=== PATIENT | female | born 1975 | race Caucasian/White ===

== ENCOUNTER 2022-07-23 13:00 | Emergency (ER) | payer MEDICAID ==
[~2022-07-23] VITALS: Ht 162.6 cm; Wt 78.0 kg
[2022-07-23 13:39] VITALS: BP 177/92
[2022-07-23] MEDS ORDERED: KETOROLAC 60MG/2ML VIAL IM ONE (13:45)
[2022-07-23] MEDS ORDERED: IBUP-2029 MT (15:57)
== END 2022-07-23 17:22 | disposition home or self-care (01) ==
LOC: ER 13:00
DX: R51.9 Headache, unspecified (principal)
CPT/HCPCS: 70450; 96372; 99284; J1885

== ENCOUNTER 2022-08-04 14:25 | Emergency (ER) | payer MEDICAID ==
[~2022-08-04] VITALS: Ht 160 cm; Wt 75.0 kg
[~2022-08-04 14:25] MED LIST: IBUP-2029 MT
[2022-08-04] MEDS ORDERED: HYDRALAZINE 20MG/ML VIAL IV ONE (15:15)
[2022-08-04 15:59] LABS: BASOPHILS % 0.5 % (0.0-2.0); EOSINOPHILS % 2.5 % (0.0-5.0); HEMATOCRIT. 29.5 % (36.0-48.0); HEMOGLOBIN. 8.9 g/dL (12.0-16.0); LYMPHOCYTES % 27.4 % (20.0-50.0); MEAN CORPUSCULAR HEMOGLOBIN 19.9 pg (28.0-32.0); MEAN CORPUSCULAR VOLUME 66.1 fL (81.0-99.0); MEAN PLATELET VOLUME 9.8 fl (7.4-10.4); MONOCYTES % 7.3 % (2.0-8.0); NEUTROPHILS % 62.3 % (40.0-76.0); PLATELET 193 x1000/uL (130-400); RED BLOOD CELL COUNT 4.46 mill/uL (4.2-5.4); RED CELL DISTRIBUTION WIDTH 20.9 % (11.6-14.6)
[2022-08-04 16:05] LABS: CHLORIDE 103 mEq/L (98-107)
[2022-08-04 16:31] LABS: HCG SCREEN NEGATIVE
[2022-08-04 16:41] LABS: PLATELET ESTIMATE NORMAL
[2022-08-04] MEDS ORDERED: AMLO5TAB88 MT (19:29)
[2022-08-04 20:00] VITALS: BP 139/84
== END 2022-08-04 20:03 | disposition home or self-care (01) ==
LOC: ER 14:25
DX: I10 Essential (primary) hypertension (principal); D64.9 Anemia, unspecified
CPT/HCPCS: 36415; 80053; 83880; 84484; 84703; 85025; 93005; 96374; 99284; J0360

== ENCOUNTER 2024-02-05 11:08 | Emergency (ER) | payer SELFPAY ==
[~2024-02-05] VITALS: Ht 165.1 cm; Wt 100.0 kg
[~2024-02-05 11:08] MED LIST changes: +AMLO5TAB88 MT
[2024-02-05 11:21] VITALS: O2SAT 99
[2024-02-05 11:50] LABS: BASOPHILS % 0.3 % (0.0-2.0); EOSINOPHILS % 1.9 % (0.0-5.0); HEMATOCRIT. 32.9 % (36.0-48.0); HEMOGLOBIN. 10.1 g/dL (12.0-16.0); LYMPHOCYTES % 33.2 % (20.0-50.0); MEAN CORPUSCULAR HEMOGLOBIN 21.4 pg (28.0-32.0); MEAN CORPUSCULAR HGB CONC 30.8 g/dL (31.0-37.0); MEAN CORPUSCULAR VOLUME 69.4 fL (81.0-99.0); MEAN PLATELET VOLUME 8.8 fl (7.4-10.4); MONOCYTES % 7.5 % (2.0-8.0); NEUTROPHILS % 57.1 % (40.0-76.0); PLATELET 199 x1000/uL (130-400); RED BLOOD CELL COUNT 4.74 mill/uL (4.2-5.4); WHITE BLOOD COUNT 3.7 x1000/uL (4.5-11.0)
[2024-02-05] MEDS: METOCLOPRAMIDE HCL 10MG/2ML VIAL IV ONE (11:50)
[2024-02-05 11:51] LABS: ADD RBC MORPHOLOGY YES; DIFFERENTIAL COMMENT 1
[2024-02-05] MEDS: KETOROLAC 15MG/ML VIAL IV ONE (11:51)
[2024-02-05] MEDS: SODIUM CHLORIDE 0.9% 1,000 ML IV ONE (11:52)
[2024-02-05 11:55] VITALS: BP 189/97; PULSE 73; RESP 12; TEMP 98
[2024-02-05 12:04] LABS: CHLORIDE 108 mEq/L (98-107); POTASSIUM 3.8 mEq/L (3.5-5.1); SODIUM 140 mEq/L (136-145)
[2024-02-05 12:05] LABS: CARBON DIOXIDE 28 mEq/L (21-32)
[2024-02-05 12:06] LABS: CALCIUM 9.2 mg/dL (8.7-10.4)
[2024-02-05 12:10] LABS: CREATININE 0.7 mg/dL (0.6-1.0); GLUCOSE 93 mg/dL (70-105)
[2024-02-05 12:11] LABS: UREA NITROGEN BLOOD 8 mg/dL (9-23)
[2024-02-05 12:12] LABS: ALANINE AMINOTRANSFERASE 19 IU/L (10-49); ALBUMIN 4.3 g/dL (3.2-4.8); ASPARTATE AMINOTRANSFERASE 21 IU/L (<34)
[2024-02-05 12:13] LABS: BILIRUBIN TOTAL 0.5 mg/dL (0.1-1.0); PROTEIN TOTAL 7.6 g/dL (6.0-8.3)
[2024-02-05 12:14] LABS: HCG SCREEN NEGATIVE
[2024-02-05 12:20] LABS: MICROCYTOSIS 3+; PLATELET ESTIMATE NORMAL
[2024-02-05 12:21] LABS: ANISOCYTOSIS 2+; HYPOCHROMASIA 1+
[2024-02-05 12:39] LABS: CLARITY URINE CLEAR (CLEAR); COLOR URINE YELLOW (YELLOW); GLUCOSE URINE NEGATIVE (NEGATIVE); KETONES URINE NEGATIVE (NEGATIVE); LEUKOCYTE ESTERASE URINE TRACE (NEGATIVE); NITRITE URINE NEGATIVE (NEGATIVE); OCCULT BLOOD URINE 1+ (NEGATIVE); PH URINE 7.5 (4.5-8.0); PROTEIN URINE NEGATIVE (NEGATIVE); SPECIFIC GRAVITY URINE 1.007 (1.005-1.030); UROBILINOGEN URINE 0.2 E.U./dL (0.2-1.0)
[2024-02-05] MEDS ORDERED: LISI10TA26 MT (12:49)
[2024-02-05] MEDS ORDERED: IBUP-2029 MT (12:49)
[2024-02-05 13:22] LABS: SQUAMOUS EPITHELIAL CELL URINE 1+ /lpf (RARE/1+)
[2024-02-05 13:23] LABS: BACTERIA URINE 3+; RBC URINE 0-2 /hpf (0-2)
== END 2024-02-05 13:43 | disposition home or self-care (01) ==
LOC: ER 11:08
DX: M54.2 Cervicalgia (principal); I10 Essential (primary) hypertension; Z98.890 Other specified postprocedural states
CPT/HCPCS: 99284; 96374; 96375; 80053; 81003; 84703; 85025; 36415; J1885; J2765; J7030